=== PATIENT | male | born 1980 | race American Indian/Alaskan Native ===

== ENCOUNTER 2017-11-23 16:16 | Emergency (ER) | payer SELFPAY ==
--- NOTE | 2017-11-23 18:38 | EDM.PDOC ---
Scribed by Nesha Mercer 11/23/17 [id number] for Maksim Riddle MD ED HPI GENERAL MEDICAL PROBLEM - General Chief Complaint: ENT Problem Stated Complaint: SORE THROAT Time Seen by Provider: 11/23/17 16:27 - History of Present Illness INITIAL COMMENTS - FREE TEXT/NARRATIVE: Left without being seen. Throat Pain Score (Numeric/FACES): 3 - Related Data Allergies Allergy/AdvReac Type Severity Reaction Status Date / Time No Known Allergies Allergy Verified 11/23/17 16:28 Home Meds: Home Meds . [No Known Home Meds] 11/23/17 [History] Past Medical History Musculoskeletal History: Reports: Fracture Social & Family History - Tobacco Use Smoking Status *Q: Current Every Day Smoker Years of Tobacco use: 1 Packs/Tins Daily: 0.5 Second Hand Smoke Exposure: Yes - Recreational Drug Use Recreational Drug Use: No ED ROS ENT - Review of Systems Review Of Systems: Unable To Obtain ED EXAM, ENT - Physical Exam Exam: Not Obtained Course - Vital Signs Last Recorded V/S: Last Vital Signs Temp 36.6 C 11/23/17 16:25 Pulse 105 H 11/23/17 16:25 Resp 18 11/23/17 16:25 BP 153/85 H 11/23/17 16:25 Pulse Ox 97 11/23/17 16:25 - Orders/Labs/Meds Orders: Active Orders 24 hr Category Date Time Status CULTURE STREP A CONFIRMATION [RM] Stat Lab 11/23/17 16:27 Results STREP SCRN A RAPID W CULT CONF [RM] Stat Lab 11/23/17 16:27 Results Labs: Rapid strep: Negative. Departure - Departure Time of Disposition: 18:26 Disposition: Left Without Being Seen 07 Clinical Impression: Patient left without being seen - Discharge Information Forms: ED Department Discharge, Refusal of Medical Screening, Refusal of Exam and Treatment - My Orders Last 24 Hours: My Active Orders 11/23/17 16:27 CULTURE STREP A CONFIRMATION [RM] Stat STREP SCRN A RAPID W CULT CONF [RM] Stat - Assessment/Plan Last 24 Hours: My Active Orders 11/23/17 16:27 CULTURE STREP A CONFIRMATION [RM] Stat STREP SCRN A RAPID W CULT CONF [RM] Stat I have read and agree with the documentation that has been completed regarding this visit. By signing this record, I attest that the documentation was completed in my physical presence and is an accurate record of the encounter.
== END 2017-11-23 18:25 | disposition left against medical advice (07) ==
LOC: DL.ED 16:16
DX: Z53.21 Procedure and treatment not carried out due to patient leaving prior to being seen by health care provider (principal)
CPT/HCPCS: 87081; 87430

== ENCOUNTER 2018-05-21 22:21 | Emergency (ER) | payer SELFPAY ==
--- NOTE | 2018-05-21 22:52 | EDM.PDOC ---
ED HPI GENERAL MEDICAL PROBLEM - General Chief Complaint: Head Injury Stated Complaint: FELL AND HIT HIS HEAD Time Seen by Provider: 05/21/18 22:35 Source of Information: Reports: Patient History Limitations: Reports: No Limitations - History of Present Illness INITIAL COMMENTS - FREE TEXT/NARRATIVE: This 38 yo male patient was brought to the ED by [employer] due to a laceration to his scalp. The patient reports he slipped at about 1830 and hit his head on a brick wall. The patient denies any loss of consciousness before, during or after the incident. Onset: Today Onset Date: 05/21/18 Onset Time: 18:30 Duration: Constant Location: Reports: Head Quality: Reports: Other Severity: Mild Improves with: Reports: None Worsens with: Reports: None Context: Reports: Other Associated Symptoms: Reports: No Other Symptoms Headache Pain Score (Numeric/FACES): 4 - Related Data Allergies Allergy/AdvReac Type Severity Reaction Status Date / Time No Known Allergies Allergy Verified 05/21/18 22:38 Home Meds: Home Meds . [No Known Home Meds] 11/23/17 [History] Past Medical History - Past Health History Medical/Surgical History: Denies Medical/Surgical History Musculoskeletal History: Reports: Fracture Social & Family History - Family History Family Medical History: Noncontributory ED ROS GENERAL - Review of Systems Review Of Systems: ROS reveals no pertinent complaints other than HPI. ED EXAM, HEAD INJURY - Physical Exam Exam: See Below Exam Limited By: No Limitations General Appearance: Alert, WD/WN, No Apparent Distress Head: Scalp Lacerations Nexus Criteria: No: Posterior, Midline Cervical Tenderness, Evidence of Intoxication, Altered Level of Consciousness, Focal Neurological Deficit, Painful Distraction Injuries Eyes: Bilateral Eye: EOMI, Normal Inspection, PERRL Ears: Normal External Exam, Normal Canal, Hearing Grossly Normal, Normal TMs Nose: Normal Inspection, Normal Mucousa, No Blood Throat/Mouth: Normal Inspection, Normal Lips, Normal Teeth, Normal Gums, Normal Oropharynx, Normal Voice, No Airway Compromise Neck: Non-Tender, Full Range of Motion, Normal Alignment, Normal Inspection Respiratory: No Respiratory Distress, Lungs Clear, Normal Breath Sounds, No Accessory Muscle Use, Chest Non-Tender Cardiovascular: Normal Peripheral Pulses, Regular Rate, Rhythm, No Edema, No Gallop, No JVD, No Murmur, No Rub GI/Abdominal Exam: Normal Bowel Sounds, Soft, Non-Tender, No Organomegaly, No Distention, No Abnormal Bruit, No Mass (Male) Exam: Deferred Rectal (Males) Exam: Deferred Back Exam: Full Range of Motion, Normal Inspection, NT Extremities: Normal Inspection, Normal Range of Motion, Non-Tender, No Pedal Edema, Normal Capillary Refill Neurologic: oliving machine operator II-XII nml As Tested, No Motor/Sensory Deficits, Alert, Normal Mood/Affect, Oriented x 3 - [place] Coma Score Best Eye Response ([place]): (4) Open Spontaneously Best Verbal Response ([place]): (5) Oriented Best Motor Response ([place]): (6) Obeys Commands [place] Total: 15 ED LACERATION/WOUND & NURYS PROC - Laceration/Wound Repair Head Lac/wound length in cm: 5 Appearance: Subcutaneous Distal NVT: Neuro & Vascular Intact Skin Prep: Chlorhexidine ([place]) Exploration/Debridement/Repair: Wound Explored Closed with: [place] # of Sutures: 6 Drain Placement: No Sterile Dressing Applied: None Tetanus Status Addressed: Yes Complications: No Course - Vital Signs Last Recorded V/S: Last Vital Signs Temp 37.2 C 05/21/18 22:35 Pulse 93 05/21/18 22:35 Resp 18 05/21/18 22:35 BP 119/69 05/21/18 22:35 Pulse Ox 96 05/21/18 22:35 Departure - Departure Time of Disposition: 22:50 Disposition: DC/Tfer to Court of Law En 21 Condition: Fair Clinical Impression: Laceration of scalp Qualifiers: Encounter type: initial encounter Qualified Code(s): S01.01XA - Laceration without foreign body of scalp, initial encounter - Discharge Information *PRESCRIPTION DRUG MONITORING PROGRAM REVIEWED*: Not Applicable *COPY OF PRESCRIPTION DRUG MONITORING REPORT IN PATIENT BERNIE: Not Applicable Instructions: Stitches, Jessica, or Adhesive Wound Closure, [id number] Forms: ED Department Discharge Care Plan Goals: The patient was advised of the examination results during the visit. The patient 's wound margins were well approximated during the visit. The patient should have the jessica removed in 7-10 days. The patient should keep the wound clean and dry over the next 24 hours. If the patient has any additional symptoms or concerns, the patient should either return to the emergency department or visit his primary care facility.
== END 2018-05-21 22:55 ==
LOC: DL.ED 22:21
DX: S01.01XA Laceration without foreign body of scalp, initial encounter (principal); W01.10XA Fall on same level from slipping, tripping and stumbling with subsequent striking against unspecified object, initial encounter
CPT/HCPCS: 12002; 99283

== ENCOUNTER 2021-05-11 19:33 | Emergency (ER) | payer OTHER ==
[2021-05-11] MEDS ORDERED: Iopamidol 612 MG/ML 100 ML Bottle IVPUSH ONE (19:40)
[2021-05-11] MEDS ORDERED: Sodium Chloride 0.9% 10 ML Syringe FLUSH PRN (19:41)
[2021-05-11] MEDS ORDERED: Midazolam 1 MG/ML 2 ML SDV ONE ×2 (19:54→20:04)
[2021-05-11] MEDS ORDERED: fentaNYL 100 MCG/2 ML SDV ONE (20:33)
[2021-05-11 20:37] LABS: ANION GAP 15.9 mEq/L (7-13); CHLORIDE,CL 108 mmol/L (98-107); SODIUM,NA 143 mmol/L (136-145)
[2021-05-11 21:39] LABS: METHAMPHETAMINES,URINE NEGATIVE (NEGATIVE)
[2021-05-11 21:40] LABS: AMPHETAMINES,URINE NEGATIVE (NEGATIVE); BARBITURATES,URINE NEGATIVE (NEGATIVE); BENZODIAZEPINE,URINE NEGATIVE (NEGATIVE); MDMA (ECSTASY), URINE NEGATIVE (NEGATIVE); METHADONE,URINE NEGATIVE (NEGATIVE); OPIATES,URINE NEGATIVE (NEGATIVE); OXYCODONE,URINE NEGATIVE (NEGATIVE); PHENCYCLIDINE,URINE NEGATIVE (NEGATIVE); TCA,URINE NEGATIVE (NEGATIVE)
== END 2021-05-11 21:42 ==
LOC: DL.ED 21:16
DX: S01.321A Laceration with foreign body of right ear, initial encounter (principal); R41.82 Altered mental status, unspecified; Z20.822 Contact with and (suspected) exposure to COVID-19; V49.40XA Driver injured in collision with unspecified motor vehicles in traffic accident, initial encounter; Y92.410 Unspecified street and highway as the place of occurrence of the external cause
CPT/HCPCS: 31500; 36415; 70450; 71045; 71260; 72125; 74177; 80053; 80305-QW; 80307; 85025; 99285-25; Q9967; U0002